=== PATIENT | male | born 1990 | race American Indian/Alaskan Native ===

== ENCOUNTER 2017-05-26 00:20 | Emergency (ER) | payer OTHER ==
[2017-05-26] MEDS ORDERED: MOTRIN ONE (02:25)
[2017-05-26] MEDS ORDERED: MOTRIN PO ONE (02:35)
--- NOTE | 2017-05-26 03:07 | XRay Report ---
FINAL REPORT EXAM: XR HAND 2V RT HISTORY: RT HAND SWELLING TECHNIQUE: AP and lateral views of the right hand were submitted. FINDINGS: There is an acute obliquely oriented nondilated fracture through the distal end of the 5th metacarpal with overlying dorsal soft tissue swelling. There are no additional fractures. The wrist joint appears intact. IMPRESSION: Acute boxer's type fracture of the distal end of the 5th metacarpal with overlying dorsal soft tissue swelling.
[2017-05-26] MEDS ORDERED: NORCO 10/325 ONE (04:17)
[2017-05-26] MEDS ORDERED: NORCO 10/325 PO ONE (04:18)
--- NOTE | 2017-05-26 06:36 | Emergency Department Report ---
ED Upper Extremity Inj HPI - General Stated Complaint: HAND PAIN Time Seen by Provider: 05/26/17 06:29 Source: patient Mode of arrival: Ambulatory Limitations: No Limitations - History of Present Illness -: Sudden Other Extremity Injury: Hand: Right Other Injuries: none - Related Data Previous Rx's Medication Instructions Recorded Last Taken Type HYDROcodone/APAP 5-325 [[place] 1 each PO Q6HR PRN #20 tablet 05/26/17 Unknown Rx 5/325] Allergies Allergy/AdvReac Type Severity Reaction Status Date / Time No Known Allergies Allergy Unverified 05/26/17 02:35 ED Review of Systems ROS: Stated complaint: HAND PAIN Other details as noted in HPI Comment: All other systems reviewed and negative Constitutional: no symptoms reported Gastrointestinal: as per HPI Musculoskeletal: as per HPI Neurological: as per HPI ED Past Medical Hx - Past Medical History Previous Medical History?: No Hx Hypertension: No Hx CVA: No Hx Heart Attack/AMI: No Hx Congestive Heart Failure: No Hx Diabetes: No Hx Deep Vein Thrombosis: No Hx Pulmonary Embolism: No Hx GERD: No Hx Liver Disease: No Hx Renal Disease: No Hx of Cancer: No Hx Sickle Cell Disease: No Hx Arthritis: No Hx Headaches / Migraines: No Hx Seizures: No Hx Kidney Stones: No Hx Psychiatric Treatment: No Hx Asthma: No Hx COPD: No Hx Tuberculosis: No Hx Dementia: No Hx HIV: No - Surgical History Past Surgical History?: No Hx Coronary Stent: No Hx Open Heart Surgery: No Hx Pacemaker: No Hx Internal Defibrillator: No Hx Cholecystectomy: No Hx Appendectomy: No Hx Breast Surgery: No - Social History Smoking Status: Current Every Day Smoker Substance Use Type: None - Medications Home Medications: Home Medications Medication Instructions Recorded Confirmed Last Taken Type HYDROcodone/APAP 5-325 [[place] 1 each PO Q6HR PRN #20 tablet 05/26/17 Unknown Rx 5/325] ED Physical Exam - General Limitations: No Limitations General appearance: alert - Head Head exam: Present: normocephalic - Eye Eye exam: Present: normal appearance Pupils: Present: normal accommodation - Respiratory Respiratory exam: Present: normal lung sounds bilaterally - Cardiovascular Cardiovascular Exam: Present: normal heart sounds (Definitely has be a palpable) - Extremities Exam Extremities exam: Present: tenderness, normal capillary refill. Absent: full ROM - Expanded Upper Extremity Exam Right Shoulder Exam: Present: normal inspection Forearm Wrist exam: Present: normal inspection Hand Wrist exam: Present: normal inspection Hand L/R Front: 1 - Negative: other, normal inspection, laceration, abrasion, nail injury (#), foreign body, amputation, avulsion Hand L/R Back: 1 - swelling noted Vascular: Present: normal capillary refill, radial pulse (she is having patient is on a room) ED Course Vital Signs 05/26/17 05/26/17 01:05 02:30 Temperature 98.4 F 98.4 F Pulse Rate 82 77 Respiratory 18 16 Rate Blood Pressure 132/84 132/84 O2 Sat by Pulse 100 100 Oximetry ED Medical Decision Making - Medical Decision Making Lorenzo 26-year-old -[place] male who presents to the emergency room complaining of right hand pain. Patient reports that he injured his right when he attempted to prevent himself from falling. Patient rates pain. Describes pain as a throbbing sensation. Patient did not take any medications prior to being treated. Patient unable to identify aggravating or relieving factors. Upon physical examination swelling noted to lateral aspect of right hand. Erythema noted. Full range of motion. Patient has difficulty with abduction of 4th and 5th metacarpal. Radial pulses 2+. Capillary refill 1-2 second. X-ray of the right hand ordered. Findings revealed an acute obliquely oriented nondilated fracture through the distal end of the 5th metacarpal with overlying dorsal soft tissues swelling. No additional fractures. The wrist joint appears intact. Splint was placed to 4th and 5th metacarpal. Patient instructed to follow up with orthopedics in 3-5 days. [place] 5/325 is given PRN for pain. Patient educated on RICE ( rest, ice, compression, elevation). Critical care attestation.: If time is entered above; I have spent that time in minutes in the direct care of this critically ill patient, excluding procedure time. ED Disposition Clinical Impression: Boxer's fracture Qualifiers: Encounter type: initial encounter Disposition: DC- TO HOME OR SELFCARE Is pt being admited?: No Does the pt Need Aspirin: No Condition: Stable Instructions: Boxer Fracture (ED) Additional Instructions: Patient instructed to follow-up with orthopedics in 3-5 days. Patient informed his symptoms worsen or do not improve he is to return to the emergency room immediately. Also patient informed to keep right hand immobilize with splint. Prescriptions: HYDROcodone/APAP 5-325 [[place] 5/325] 1 each PO Q6HR PRN #20 tablet PRN Reason: Pain Referrals: WILLIAM AVILA MD [Staff Physician] - 3-5 Days PRIMARY CARE, [Primary Care Provider] - 3-5 Days (Patient is to follow-up with orthopedics. ) Forms: Work/School Release Form(ED)
[2017-05-26 07:50] VITALS: BP 130/76
== END 2017-05-26 07:40 | disposition home or self-care (01) ==
LOC: ED 00:20
DX: S62.91XA Unspecified fracture of right hand, initial encounter for closed fracture (principal); F17.200 Nicotine dependence, unspecified, uncomplicated; W18.39XA Other fall on same level, initial encounter; Y93.89 Activity, other specified; Y92.89 Other specified places as the place of occurrence of the external cause; Y99.8 Other external cause status